=== PATIENT | female | born 2005 | race African-American/Black ===

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

== ENCOUNTER 2023-08-13 16:42 | Emergency (ER) | payer MEDICAID, SELFPAY ==
[2023-08-13 16:51] VITALS: BP 112/55; PULSE 70; RESP 14; TEMP 36.8; O2SAT 100
--- NOTE | 2023-08-13 17:19 | ED.FEMALEGU ---
HPI - Female Genitourinary General Chief complaint: Wound/Laceration Stated complaint: Vaginal Problems Time Seen by Provider: 08/13/23 17:12 Source: patient and RN notes reviewed Mode of arrival: ambulatory Limitations: no limitations History of Present Illness HPI Narrative: Patient presents today complaining of a painful lump to her right inner labia times 2-3 days. Denies discharge from the area. She has tried no [id number] interventions prior to arrival. Related Data Home Medications Medication Instructions Recorded Confirmed sertraline 50 mg tablet 100 mg PO DAILY 08/05/21 08/13/23 levonorgestrel 17.5 mcg/24 hrs 1 device intrauterine ONCE 08/13/23 08/13/23 (5yrs) 19.5mg intrauterine device (Kyleena) Allergies Allergy/AdvReac Type Severity Reaction Status Date / Time No Known Allergies Allergy Verified 08/13/23 16:53 Review of Systems Review of Systems: CONSTITUTIONAL: Denies body aches, fever, chills, or sweats. EYES: Denies visual changes, redness, or discharge. ENT: Denies rhinorrhea, congestion, sore throat, or otalgia. CARDIOVASCULAR: Denies chest pain, palpitations, or edema. RESPIRATORY: Denies cough or dyspnea. GASTROINTESTINAL: Denies abdominal pain, nausea, vomiting, or diarrhea. GENITOURINARY: Denies dysuria or hematuria. +labial lump SKIN: Denies rash, itching, or wounds. MUSCULOSKELETAL: Denies back pain, joint pain, or myalgia. NEUROLOGIC: Denies headache, numbness, tingling, or weakness. PSYCH: Denies depression or anxiety. [facility] Past Medical History Medical History Anxiety and depression Epigastric pain Leukocytosis Nausea Surgical History Surgical History No history of previous surgery Family History Family History Other No pertinent family history Social History Social History Social History: The patient is currently in high school and lives with her mother's friend, Grupo Pena, who is her legal guardian. She has been living with her for a few years. She denies tobacco use, drug use, or alcohol use. Smoking status: Never smoker Alcohol intake: never Substance use: never Living arrangements: with family Occupation/Education: student Gender identity (if verbalized by the patient): Female Spiritual care concerns: No Comments At time of signature, I have reviewed and agree with nursing past medical, surgical, social and family history unless otherwise noted. Please see nursing chart for further information. There is no relevant family history pertinent to the presenting complaint Exam Narrative: GENERAL: Well-appearing, well-nourished, and in no acute distress. HEAD: Normocephalic, atraumatic. EYES: EOMI. No redness or drainage. Conjunctivae normal. ENT: Mucous membranes pink and moist. NECK: Normal AROM. CHEST: No respiratory distress. : Approx 4mm skin colored firm nodule to the right inner labia that is tender to palpation. No erythema. No drainage. No pustule noted. No fluctuance. No edema. EXTREMITIES: Normal range of motion. No edema. SKIN: Warm, dry, no rash. Capillary refill normal. Normal skin turgor. NEURO: No focal deficits. Alert and oriented x3. Gait steady. PSYCH: Normal affect. No signs of depression or anxiety. Course Course Level of Care: Express Care Visit Vital Signs Vital signs: Vital Signs Temperature 98.3 F 08/13/23 16:51 Pulse Rate 70 08/13/23 16:51 Respiratory Rate 14 08/13/23 16:51 Blood Pressure 112/55 L 08/13/23 16:51 Pulse Oximetry 100 08/13/23 16:51 Oxygen Delivery Room Air 08/13/23 16:51 Temperature 98.3 F 08/13/23 16:51 Pulse Rate 70 08/13/23 16:51 Respiratory Rate 14 08/13/23 16:51 Blood Pressure 112/55
== END 2023-08-13 17:29 | disposition home or self-care (01) ==
PROVIDERS: Emergency Provider Nurse Practitioner; PCP Pediatrics
DX: R10.2 Pelvic and perineal pain (principal); F41.9 Anxiety disorder, unspecified; F32.A Depression, unspecified; Z79.899 Other long term (current) drug therapy
CPT/HCPCS: 99213; G0463

== ENCOUNTER 2024-02-22 20:22 | Emergency (ER) | payer OTHER, SELFPAY | END 2024-02-22 21:30 | disposition left against medical advice (07) | LOC: ANHED 21:23 | PROVIDERS: PCP Pediatrics | DX: Z53.21 Procedure and treatment not carried out due to patient leaving prior to being seen by health care provider (principal) | CPT/HCPCS: 99199 ==

== ENCOUNTER 2025-08-28 16:09 | Emergency (ER) | payer SELFPAY ==
[2025-08-28 16:37] VITALS: BP 100/55; PULSE 67; RESP 18; TEMP 36.4; O2SAT 100
--- NOTE | 2025-08-28 17:04 | ED_ITS ---
HPI - General Adult General Chief complaint: Unspecified Stated complaint: Pescription refill Time Seen by Provider: 08/28/25 16:45 Source: patient Mode of arrival: ambulatory Limitations: no limitations History of Present Illness HPI narrative: Chuy is a 19-year-old female patient presenting to the clinic today with complaints for a prescription refill of her sertraline. Reports she ran out of the medication today. Contacted her new PCP who she has an appointment with in September and she was told to come in here for a medication refill. She is taking this medication for depression/anxiety. States she feels well controlled on the medication. Is taking 100 mg of sertraline daily. Patient's prescribing doctor for this was doctor Satterly-however patient is 19 and had to switch doctors as the unemployment insurance hearing officer is not able to continue to see the patient. Related Data Home Medications ?Medication ?Instructions ?Recorded ?Confirmed ?Last Taken ?Type sertraline 50 mg tablet 100 mg PO DAILY 08/05/2104/2808/02/21 History levonorgestrel 17.5 mcg/24 hr (up 1 device intrauterin e ONCE 08/13/23 08/13/23 Unknown History to 5 yrs) 19.5mg intrauterine device (Kyleena) Allergies Allergy/AdvReac Type Severity Reaction Status Date / Time No Known Allergies Allergy Verified 08/28/25 16:32 Review of Systems Review of Systems: Pertinent positives per HPI. Patient denies any fever, chills, rash, headache, visual changes, dizziness, cough, runny nose, sore throat, shortness of breath, chest pain, palpitations, nausea, vomiting, diarrhea, constipation, abdominal pain, or any urinary issues. [facility] Past Medical History Medical History Anxiety and depression Epigastric pain Leukocytosis Nausea Surgical History Surgical History No history of previous surgery Family History Family History Other No pertinent family history Social History Social History Social History: The patient is currently in high school and lives with her mother's friend, Grupo Pena, who is her legal guardian. She has been living with her for a few years. She denies tobacco use, drug use, or alcohol use. Smoking status: Never smoker Alcohol intake: never Substance use: never Living arrangements: with family Occupation/Education: student Gender identity (if verbalized by the patient): Female Spiritual care concerns: No Comments At the time of my signature, I reviewed and agree with the nursing past medical, surgical, social, and family history. There is no relevant family history pertinent to the patient complaint. Exam Narrative: General: Well-developed, well nourished, in no apparent distress Head: Normocephalic, atraumatic Cardio: Regular rate and rhythm, s1 and s2 normal, no murmurs appreciated. Resp: Clear to auscultation bilaterally, no rhonchi, rales, wheezing or rubs. Psych: Alert and oriented x 4, Normal mood and affect, pleasant, good insight and goal oriented. Course Course Level of Care: Express Care Visit Vital Signs Vital signs: Vital Signs Temperature 36.4 C 08/28/25 16:37 Pulse Rate 67 08/28/25 16:37 Respiratory Rate 18 08/28/25 16:37 Blood Pressure 100/55 L 08/28/25 16:37 Pulse Oximetry 100 08/28/25 16:37 Oxygen Delivery Room Air 08/28/25 16:37 Temperature 36.4 C 08/28/25 16:37 Pulse Rate 67 08/28/25 16:37 Respiratory Rate 18 08/28/25 16:37 Blood Pressure 100/55 L 08/28/25 16:37 Pulse Oximetry 100 08/28/25 16:37 Oxygen Delivery Room Air 08/28/25 16:37 [facility] MDM Narrative Medical decision making narrative: At the time of visit patient is resting comfortably on the exam table. Patient appears to be nontoxic. Complaints for a prescription refill of her sertraline. Reports she ran out of the medication today. Contacted her new PCP who she has an appointment with in September and she was told to come in here for a medication refill. She is taking this medication for depression/anxiety. States she feels well controlled on the medication. Is taking 100 mg of sertraline daily. Patient's prescribing doctor for this was doctor Satterly-however patient is 19 and had to switch doctors as the unemployment insurance hearing officer is not able to continue to see the patient. Denies any suicidal ideation or homicidal ideation. Plan: Patient is here for medication refill. Explained to the patient the we can only give 1 week refill for these type of medications and patient needs to be managed by psychiatrist/PCP while taking these medications. Patient voiced understanding. Explained that this will be a 1 time fill and she needs to get a hold of her new PCP or old PCP to see if they will give her enough medication and until she is able to be seen by new PCP. She voiced understanding. Supportive measures were discussed with the patient and they voiced und erstanding discharge instructions and agrees to treatment plan. Return precautions reviewed Differential Diagnosis Differential Diagnosis: Differential diagnostic considerations for mental health disturbances include substance abuse, drug overdose, self-inflicted injuries, substance withdrawal, electrolyte disturbances, endocrinologic disturbances, infection, social stressors, schizophrenia, bipolar disorder, depression, acute anxiety, suicidal ideation, medication noncompliance. Discharge Plan Discharge Clinical Impression: Medication refill, Anxiety and depression Patient Disposition: Home Condition: Stable Instructions: Antibiotic Form, Depression (ED), Anxiety (ED), Medicine Refill (ED) Additional Instructions: Take sertraline as prescribed We can only for refill this medication for 1 week and we will not be able to continue giving you this medication as it needs to be prescribed and monitored by your primary care doctor or psychiatrist. Recommend contacting your old primary care provider-Dr. Dawson and ask if they will give you a prescription up until the date you see your new provider or contact new provider to see if they can get you enough until you are seen Patient Language: Comoran Prescriptions: New sertraline 100 mg tablet 100 mg PO DAILY 7 Days Qty: 7 0RF No Action Kyleena 17.5 mcg/24 hrs (5 yrs) 19.5 mg Intrauterine Device 1 device INTRAUTERINE ONCE Rx Instructions: as a single dose sertraline 50 mg Tablet 100 mg PO DAILY Follow-up/Referrals: Keyana Lott APRN [Primary Care Provider, [facility]] Time of Disposition: 16:45 Quality NIHSS Nursing Documentation ED NIHSS nursing documentation: reviewed/agree
== END 2025-08-28 16:55 | disposition home or self-care (01) ==
PROVIDERS: Emergency Provider Nurse Practitioner Family; PCP Nurse Practitioner Family
DX: Z76.0 Encounter for issue of repeat prescription (principal); F41.9 Anxiety disorder, unspecified; F32.A Depression, unspecified
CPT/HCPCS: 99211; G0463